=== PATIENT | female | born 1995 | race African-American/Black ===

== ENCOUNTER 2017-07-21 11:18 | Emergency (ER) | payer MEDICAID, SELFPAY ==
[2017-07-21 11:58] LABS: Bilirubin Negative (Negative); Blood, Urine Negative (Negative); Glucose, Urine (Dipstick) Negative (Negative); Ketone, Urine Negative (Negative); Nitrite Negative (Negative); Protein, Urine (Dipstick) Negative (Neg-Trace)
[2017-07-21 12:00] LABS: Bacteria/HPF None Seen HPF (None Seen); Hyaline Casts/LPF 0-3 HYALINE CAST LPF (0-3 Hyaline); RBC/HPF 0-3 HPF (0-3); Squamous Epithelial 0-3 HPF (0-3)
[2017-07-21 12:00] LABS: #Basophils 0.2 thou/uL (0.0-0.2); #Eosinphils 0.3 thou/uL (0.0-0.7); #Lymphocytes 2.1 thou/uL (1.20-3.40); #Monocytes 0.6 thou/uL (0.11-0.59); #Neutrophils 2.8 thou/uL (1.40-6.50); %Basophils 2.8 % (0.0-1.0); %Eosinophils 4.4 % (0.0-10.0); %Lymphocytes 36.3 % (21.0-51.0); %Monocytes 9.4 % (0.0-10.0); Hematocrit 42.5 % (36.0-47.0); Mean Platelet Volume 8.7 fL (7.4-10.4); Red Blood Cell (RBC) Count 4.94 mill/uL (4.20-5.40); White Blood Cell (WBC) Count 5.9 thou/uL (4.8-10.8)
== END 2017-07-21 13:15 | disposition home or self-care (01) ==
LOC: ERS 11:18
DX: N93.8 Other specified abnormal uterine and vaginal bleeding (principal); Z79.899 Other long term (current) drug therapy
CPT/HCPCS: 36415; 81003; 81015; 84703; 85025; 99284

== ENCOUNTER 2017-11-07 21:16 | Emergency (ER) | payer SELFPAY ==
[2017-11-07 21:49] LABS: Bilirubin Negative (Negative); Blood, Urine Negative (Negative); Clarity CLOUDY (Clear); Glucose, Urine (Dipstick) Negative (Negative); Leukocyte Large (Negative); Nitrite Negative (Negative); Protein, Urine (Dipstick) Negative (Neg-Trace); Specific Gravity, Urine 1.012 (1.002-1.036)
[2017-11-07 21:52] LABS: Bacteria/HPF None Seen HPF (None Seen); Hyaline Casts/LPF 0-3 HYALINE CAST LPF (0-3 Hyaline); Pathc Cast-AUWi Flag 0.27 (0-2.49); Squamous Epithelial 0-3 HPF (0-3)
== END 2017-11-07 22:02 | disposition left against medical advice (07) ==
LOC: ERS 21:16
DX: Z53.21 Procedure and treatment not carried out due to patient leaving prior to being seen by health care provider (principal)
CPT/HCPCS: 81003; 81015

== ENCOUNTER 2018-01-06 07:16 | Emergency (ER) | payer OTHER, SELFPAY ==
[2018-01-06 08:15] LABS: #Basophils 0.1 thou/uL (0.0-0.2); #Eosinphils 0.4 thou/uL (0.0-0.7); #Lymphocytes 2.2 thou/uL (1.20-3.40); #Monocytes 0.6 thou/uL (0.11-0.59); #Neutrophils 4.4 thou/uL (1.40-6.50); %Basophils 0.8 % (0.0-1.0); %Eosinophils 5.1 % (0.0-10.0); %Lymphocytes 28.3 % (21.0-51.0); %Monocytes 8.1 % (0.0-10.0); %Neutrophils 57.8 % (42.0-75.0); Hemoglobin 12.3 g/dL (12.0-16.0); Mean Corpuscular HGB CONC 34.8 g/dL (32.0-36.0); Mean Corpuscular Hemoglobin 29.4 pg (27.0-31.0); Mean Corpuscular Volume 84.6 fl (81.0-99.0); Platelet Count 179 thou/uL (130-400); RBC Distribution Width 11.7 % (11.5-14.5); Red Blood Cell (RBC) Count 4.16 mill/uL (4.20-5.40); White Blood Cell (WBC) Count 7.7 thou/uL (4.8-10.8)
[2018-01-06 08:36] LABS: ALT (SGPT) 7 U/L (8-55); AST (SGOT) 12 U/L (5-34); Albumin 3.4 g/dL (3.5-5.0); Alkaline Phosphatase 61 U/L (40-150); Anion Gap 9 mmol/L (10-20); BUN (Urea Nitrogen) 6 mg/dL (7.0-18.7); Bilirubin, Total 0.2 mg/dL (0.2-1.2); Calc. Creatinine Clearance 0 mL/min (70-130); Calcium 8.5 mg/dL (7.8-10.44); Carbon Dioxide 22 mmol/L (22-29); Chloride 107 mmol/L (98-107); Estimated GFR-MDRD Greater than 90; Globulin 2.8 g/dL (2.4-3.5); Glucose 76 mg/dL (70-105); Potassium 3.8 mmol/L (3.5-5.1); Protein, Total 6.2 g/dL (6.0-8.3); Sodium 134 mmol/L (136-145)
[2018-01-06 08:49] LABS: Bilirubin Negative (Negative); Blood, Urine Negative (Negative); Clarity CLEAR (Clear); Glucose, Urine (Dipstick) Negative (Negative); Leukocyte Trace (Negative); Nitrite Negative (Negative); Protein, Urine (Dipstick) Negative (Neg-Trace); Specific Gravity, Urine 1.015 (1.002-1.036); Urobilinogen 0.2 mg/dL (0.2-1.0)
[2018-01-06 08:58] LABS: Bacteria/HPF None Seen HPF (None Seen); Hyaline Casts/LPF 0-3 HYALINE CAST LPF (0-3 Hyaline); RBC/HPF 0-3 HPF (0-3); Squamous Epithelial 0-3 HPF (0-3); WBC/HPF 0-3 HPF (0-3)
--- NOTE | 2018-01-06 09:49 | ULT ---
ULTRASOUND OBSTETRICAL COMPLETE: DATE: 01-06-18 HISTORY: 22-year-old female with abdominal pain. FINDINGS: number: [place] lie: Variable Maternal cervix: Closed and at least 3 cm long Placenta: Anterior and low lying. No evidence of abruption. Amniotic fluid volume: Subjectively within normal limits EVANS: Not measured anatomy was not evaluated in detail. biometry: Head circumference (HC): 13.1 cm 16 w 5 d Biparietal diameter (BPD): 3.4 cm 16 w 4 d Abdominal circumference (AC): 10.5 cm 16 w 3 d Femur length (FL): 2.0 cm 15 w 6 d Average ultrasound age (AUA): 16 w 2 d Estimated date of delivery (CARMEN): 06-21-18 Last menstrual period (LMP): 09-19-17 Gestational age by LMP: 15 w 4 d Estimated weight (EFW): 148 g +/- 22 g (0 lb 5 oz, +/- 1 oz) IMPRESSION: 1. Live early second trimester intrauterine gestation. 2. Estimated gestational age of 16 weeks, 2 days. 3. Variable lie. 4. No evidence of acute complications. [facility] [place] POS: [facility]
== END 2018-01-06 09:12 | disposition home or self-care (01) ==
LOC: ERS 07:16
DX: O99.89 Other specified diseases and conditions complicating pregnancy, childbirth and the puerperium (principal); R10.33 Periumbilical pain; Z3A.16 16 weeks gestation of pregnancy
CPT/HCPCS: 36415; 76815; 80053; 81003; 81015; 84702; 85025

== ENCOUNTER 2018-02-17 15:34 | Outpatient (CLI) | payer OTHER | END 2018-02-17 15:35 | disposition home or self-care (01) | LOC: BICULT 15:34 | PROVIDERS: ATTEND Family Medicine | DX: O09.92 Supervision of high risk pregnancy, unspecified, second trimester (principal) | CPT/HCPCS: 76805 ==

== ENCOUNTER 2018-02-21 16:08 | Day surgery (SDC) | payer OTHER ==
[2018-02-21 16:55] VITALS: BMI 25.0
[2018-02-21] MEDS ORDERED: Dextrose 5%-Lactated Ringers 1,000 ML IV SCH (17:30)
[2018-02-21 17:57] LABS: #Eosinphils 0.2 thou/uL (0.0-0.7); #Lymphocytes 1.9 thou/uL (1.20-3.40); #Monocytes 0.8 thou/uL (0.11-0.59); #Neutrophils 7.3 thou/uL (1.40-6.50); %Basophils 0.2 % (0.0-1.0); %Lymphocytes 18.7 % (21.0-51.0); %Monocytes 7.6 % (0.0-10.0); %Neutrophils 71.5 % (42.0-75.0); Hemoglobin 12.1 g/dL (12.0-16.0); Mean Corpuscular HGB CONC 34.7 g/dL (32.0-36.0); Mean Corpuscular Hemoglobin 28.5 pg (27.0-31.0); Mean Corpuscular Volume 82.3 fL (78.0-98.0); Mean Platelet Volume 8.7 fL (7.4-10.4); Platelet Count 175 thou/uL (130-400); RBC Distribution Width 11.2 % (11.5-14.5); Red Blood Cell (RBC) Count 4.25 mill/uL (4.20-5.40); White Blood Cell (WBC) Count 10.2 thou/uL (4.8-10.8)
[2018-02-21 18:41] LABS: Bilirubin Negative (Negative); Blood, Urine Negative (Negative); Clarity CLEAR (Clear); Glucose, Urine (Dipstick) Negative (Negative); Leukocyte Moderate (Negative); Nitrite Negative (Negative); Protein, Urine (Dipstick) Trace mg/dL (Neg-Trace); Specific Gravity, Urine 1.034 (1.002-1.036)
[2018-02-21 18:45] LABS: Bacteria/HPF None Seen HPF (None Seen); Pathc Cast-AUWi Flag 0.43 (0-2.49); RBC/HPF 0-3 HPF (0-3)
[2018-02-21 18:58] LABS: Hyaline Casts/LPF 0-3 HYALINE CAST LPF (0-3 Hyaline)
[2018-02-21 19:03] LABS: Trichomonas/HPF Rare HPF (None Seen)
--- NOTE | 2018-02-21 20:13 | ULT ---
OB ULTRASOUND: HISTORY: Status post fall. The patient is 22 weeks' . COMPARISON: None. TECHNIQUE: Sagittal and transverse imaging of the gravid uterus is performed. FINDINGS: The uterus is identified. Within the endometrium is a single intrauterine gestation with a cephalic presentation. Anterior placenta. No previa. Cervical length is 3 cm. heart tones with a rate of 144 beats per minute. BIOMETRY: BPD: 5.55 cm (22 weeks 6 days) HEAD CIRCUMFERENCE: 20.44 cm (22 weeks 4 days) ABDOMINAL CIRCUMFERENCE: 17.20 cm (22 weeks 1 day) FEMUR LENGTH: 3.99 cm (22 weeks 6 days) ESTIMATED WEIGHT: 510 g AVERAGE AGE BY SONOGRAPHY: 22 weeks 4 days ESTIMATED DATE OF DELIVERY: 06/23/2018 AMNIOTIC FLUID INDEX: 13.5 cm IMPRESSION: Single intrauterine gestation with heart tones. Average age by sonography is 22 weeks 4 days. POS: [facility]
--- NOTE | 2018-02-22 02:24 | SS ---
LABOR AND DELIVERY TRIAGE NOTE DATE OF EVALUATION: 02/21/2018 REGULAR PHYSICIAN: Primitivo Gillette M.D. EVALUATING PHYSICIAN: Rancho Botello M.D. CHIEF COMPLAINT: Fell at home, cramping. HISTORY OF PRESENT ILLNESS: Ms. Cordero is a 22-year-old black G3, P1-0-1-1 with an estimated date of c onfinement of 06/26/2018 who presents complaining of cramping after she fell across a bed frame at [facility]. She did state that the frame struck her across the lower abdomen. She denies vaginal bleeding o r rupture of membranes. PAST OBSTETRICAL HISTORY: Remarkable for miscarriage requiring a D&C as well as a vaginal delivery a t term. She currently sees Dr. Gillette and denies any complications. PAST MEDICAL HISTORY: None. PAST SURGICAL HISTORY: D&C as above. ALLERGIES: None. CURRENT MEDICATIONS: vitamins. SOCIAL HISTORY: She denies tobacco or alcohol use. FAMILY HISTORY: Denies breast or pelvic malignancy. REVIEW OF SYSTEMS: Reports cramping. Denies vaginal bleeding, ruptured membranes, nausea, vomiting, fever, or chills. PHYSICAL EXAMINATION: VITAL SIGNS: Stable and she is afebrile. GENERAL: She is in pleasant and in no acute distress. ABDOMEN: Soft and nontender. There is no guarding or rebound. The fundus extends to just above the umbilicus. heart tones are stable. Initially irritability is seen. LABORATORY DATA: White count 10.2, hemoglobin and hematocrit 12.1 and 34.9 respectively, platelet co unt 175,000. Blood type is B positive with a negative screen. Urinalysis shows a specific gravity o f 1.034, protein trace, glucose negative, ketones greater than 80, blood negative, negative nitrites, negative, bilirubin. Ultrasound shows biometry consistent with 22 weeks 4 days. EVANS 13.5. Placenta is anterior, but not low lying. Her cervical length is 3 cm. An IV is started due to the uterine irritability. She is given fluid over several hours and no furth er irritability is seen. ASSESSMENT: 1. A 22-week intrauterine . 2. No evidence of labor or abruption at this time. PLAN: Patient will be discharged to home. Patient was cautioned to drink more and to keep herself f rom getting dehydrated. She voiced understanding of her discharge instructions and she has an appoin tment with Dr. Gillette in the morning.
== END 2018-02-21 20:30 | disposition home or self-care (01) ==
LOC: L&D/OP 16:08
PROVIDERS: ATTEND Family Medicine
DX: O9A.212 Injury, poisoning and certain other consequences of external causes complicating pregnancy, second trimester (principal); R10.9 Unspecified abdominal pain; Z3A.22 22 weeks gestation of pregnancy
CPT/HCPCS: 76805; 81003; 81015; 85025; 86850; 86900; 86901; 96360; 96361; 99283

== ENCOUNTER 2018-06-09 22:00 | Inpatient (IN) | payer OTHER ==
[2018-06-09 23:06] VITALS: BMI 30.2
[2018-06-09] MEDS ORDERED: Butorphanol Tartrate 1 MG/ML VIAL SLOW IVP PRN (23:07)
[2018-06-09] MEDS ORDERED: Carboprost 250 MCG/ML AMP IM PRN (23:07)
[2018-06-09] MEDS ORDERED: Lidocaine 1% (PF) 30 ML VIAL SC PRN (23:07)
[2018-06-09] MEDS ORDERED: NS w/ Oxytocin 10 units 500 ML IV SCH ×2 (23:07)
[2018-06-09] MEDS ORDERED: Misoprostol 200 MCG TAB PR PRN (23:07)
[2018-06-09] MEDS ORDERED: Methylergonovine 0.2 MG/ML VIAL IM PRN (23:07)
[2018-06-09] MEDS ORDERED: Ondansetron HCl/PF 4 MG/2 ML Vial IVP PRN (23:07)
[2018-06-09] MEDS ORDERED: HYDROcodone/Acetaminophen 5/325 mg Tablet PO PRN (23:07)
[2018-06-09] MEDS ORDERED: Diphenoxylate HCl/Atropine Tablet PO PRN (23:07)
[2018-06-09] MEDS ORDERED: Ibuprofen 800 MG TAB PO PRN (23:07)
[2018-06-09] MEDS: Lactated Ringer's 1,000 ML IV SCH (23:20)
[2018-06-09 23:42] LABS: Hemoglobin 11.6 g/dL (12.0-16.0); Mean Corpuscular HGB CONC 31.9 g/dL (32.0-36.0); Mean Corpuscular Hemoglobin 25.3 pg (27.0-31.0); Mean Corpuscular Volume 79.3 fL (78.0-98.0); Platelet Count 195 thou/uL (130-400); RBC Distribution Width 16.1 % (11.5-14.5); Red Blood Cell (RBC) Count 4.59 mill/uL (4.20-5.40); White Blood Cell (WBC) Count 9.8 thou/uL (4.8-10.8)
[2018-06-09] MEDS: Misoprostol 100 MCG TAB PO SCH (23:49)
[2018-06-10 00:18] LABS: Syphilis Antibody Nonreactive (Nonreactive); Syphilis Antibody Index 0.04 S/CO (<1.00 Non-Reactive)
[2018-06-10 00:22] LABS: HBSAg Index 0.21 S/CO (0-0.99); Hep B Surf Ag Non-Reactive S/CO (NonReactive)
[2018-06-10] MEDS: Misoprostol 100 MCG TAB PO SCH (03:59)
[2018-06-10] MEDS: Lactated Ringer's 1,000 ML IV SCH ×3 (04:54→14:15)
[2018-06-10] MEDS ORDERED: Fentanyl 4 mcg/Bup 0.1% Cadd 100 ML ONE (10:05)
[2018-06-10] MEDS ORDERED: Naloxone HCl 0.4 mg/ml Vial IVP PRN ×2 (11:43)
[2018-06-10] MEDS ORDERED: Eucerin (Mineral Oil/Petrolatum,White) 30 gm Jar TOP PRN (11:43)
[2018-06-10] MEDS ORDERED: Ondansetron HCl/PF 4 MG/2 ML Vial IVP PRN ×2 (11:43→18:11)
[2018-06-10] MEDS ORDERED: Lactated Ringer's 500 ML IV PRN (11:43)
[2018-06-10] MEDS ORDERED: Promethazine HCl 25 MG/ML VIAL IM PRN (11:43)
[2018-06-10] MEDS ORDERED: diphenhydrAMINE 50 MG/ML VIAL IVP PRN (11:43)
[2018-06-10] MEDS ORDERED: ePHEDrine/0.9% NaCl/PF SYRINGE 50 mg/10 ml SLOW IVP PRN (11:43)
[2018-06-10] MEDS ORDERED: Acetaminophen 325 MG TAB PO PRN (11:43)
[2018-06-10] MEDS ORDERED: Fentanyl 4 mcg/Bupivacaine 0.1% Cassette 100 ML EPIDURAL SCH (11:45)
[2018-06-10] MEDS ORDERED: Communication Order-Pharmacy FS SCH (11:45)
[2018-06-10] MEDS: NS / Oxytocin 40 units/1000ml 1,000 ML IV PRN ×2 (15:45→17:09)
[2018-06-10] MEDS ORDERED: diphenhydrAMINE 25 MG CAP PO PRN (18:11)
[2018-06-10] MEDS ORDERED: HYDROcodone/Acetaminophen 5/325 mg Tablet PO PRN ×2 (18:11)
[2018-06-10] MEDS ORDERED: Bisacodyl 10 MG SUPP PR PRN (18:11)
[2018-06-10] MEDS ORDERED: Benzocaine/Menthol 20-0.5% 60 ML CAN TOP PRN (18:11)
[2018-06-10] MEDS ORDERED: Milk Of Magnesia 30 ML UDCUP PO PRN (18:11)
[2018-06-10] MEDS ORDERED: NS / Oxytocin 40 units/1000ml 1,000 ML IV SCH (18:11)
[2018-06-10] MEDS ORDERED: Ferrous Sulfate 325 MG TAB PO SCH (18:30)
[2018-06-10] MEDS: Ibuprofen 800 MG TAB PO SCH (21:45)
[2018-06-10] MEDS: Docusate Calcium (SURFAK) 240 MG CAP PO SCH (21:45)
[2018-06-11] MEDS: Misoprostol 100 MCG TAB PO SCH (02:18)
[2018-06-11 05:40] LABS: Mean Corpuscular HGB CONC 31.8 g/dL (32.0-36.0); Mean Corpuscular Hemoglobin 25.6 pg (27.0-31.0); Mean Corpuscular Volume 80.5 fL (78.0-98.0); Platelet Count 151 thou/uL (130-400); RBC Distribution Width 15.9 % (11.5-14.5); Red Blood Cell (RBC) Count 4.32 mill/uL (4.20-5.40); White Blood Cell (WBC) Count 12.7 thou/uL (4.8-10.8)
[2018-06-11] MEDS: Ibuprofen 800 MG TAB PO SCH ×3 (06:30→21:21)
[2018-06-11] MEDS: Ferrous Sulfate 325 MG TAB PO SCH ×2 (08:27→16:44)
[2018-06-11] MEDS: Prenatal Vitamin 1 TAB PO SCH (08:55)
[2018-06-11] MEDS: Docusate Calcium (SURFAK) 240 MG CAP PO SCH ×2 (08:55→21:21)
[2018-06-11] MEDS ORDERED: Bupivacaine 0.25% 10 ML VIAL ONE (11:11)
[2018-06-11] MEDS ORDERED: cloNIDine 0.1 MG TAB PO PRN ×2 (23:11→23:12)
[2018-06-11 23:52] LABS: Bilirubin Negative (Negative); Blood, Urine Large (Negative); Clarity CLEAR (Clear); Glucose, Urine (Dipstick) Negative (Negative); Leukocyte Trace (Negative); Nitrite Negative (Negative); Protein, Urine (Dipstick) Negative (Neg-Trace); Specific Gravity, Urine 1.006 (1.002-1.036); Urobilinogen 0.2 mg/dL (0.2-1.0); pH, Urine 7.5 (5.0-9.0)
[2018-06-11 23:54] LABS: Bacteria/HPF None Seen HPF (None Seen); Hyaline Casts/LPF 0-3 HYALINE CAST LPF (0-3 Hyaline); RBC/HPF GREATER THAN 50-TNTC HPF (0-3); Squamous Epithelial 0-3 HPF (0-3)
[2018-06-12] MEDS: Ibuprofen 800 MG TAB PO SCH ×2 (05:18→14:19)
[2018-06-12] MEDS: Ferrous Sulfate 325 MG TAB PO SCH ×2 (07:42→15:35)
[2018-06-12] MEDS: Prenatal Vitamin 1 TAB PO SCH (09:15)
[2018-06-12] MEDS: Docusate Calcium (SURFAK) 240 MG CAP PO SCH (09:15)
[2018-06-12 20:54] VITALS: BP 112/67; TEMP 98.5
== END 2018-06-12 20:10 | disposition home or self-care (01) | DRG 807 ==
LOC: L&D 22:39 → 3SW 06-10 18:14
PROVIDERS: ADMIT Family Medicine; ATTEND Family Medicine
PROC: 10E0XZZ Delivery of Products of Conception, External Approach (ICD-10-PCS; principal; 2018-06-09)
PROC: 0UQMXZZ Repair Vulva, External Approach (ICD-10-PCS; 2018-06-09)
PROC: 10907ZC Drainage of Amniotic Fluid, Therapeutic from Products of Conception, Via Natural or Artificial Opening (ICD-10-PCS; 2018-06-09)
PROC: 3E033VJ Introduction of Other Hormone into Peripheral Vein, Percutaneous Approach (ICD-10-PCS; 2018-06-09)
DX: O71.82 Other specified trauma to perineum and vulva (principal); Z37.0 Single live birth; Z3A.39 39 weeks gestation of pregnancy
CPT/HCPCS: 36415; 51702; 81001; 85027; 86780; 86850; 86900; 86901; 87340; S0020